=== PATIENT | female | born 1945 | race Two or more races ===

== ENCOUNTER 2023-11-14 08:03 | Emergency (ER) | payer OTHER ==
[~2023-11-14] VITALS: Ht 152.4 cm; Wt 83.0 kg
[~2023-11-14 08:03] MED LIST: ASA81 MG; IRBESARTAN300 MG; KETO10TA2 PO; METFORMIN HCL850 MG; METOPROLOL SUC100 MG; PROTONIX40 MG PO
[2023-11-14] MEDS ORDERED: VITAMIN D3250 MCG PO (08:24)
[2023-11-14] MEDS ORDERED: VITAMIN B-12 51 EACH SL (08:24)
[2023-11-14] MEDS ORDERED: PRAVASTATIN SOD10 MG PO (08:25)
[2023-11-14] MEDS ORDERED: BENZONATATE 100 MG CAPSULE PO ONE (09:15)
[2023-11-14] MEDS ORDERED: LEVALBUTEROL HCL 0.63 MG/3 ML SOLUTION IH ONE (09:15)
[2023-11-14 10:34] LABS: HEMATOCRIT 39.8 % (36.0-45.00); HEMOGLOBIN 13.2 g/dL (12.0-15.00); MEAN CELL VOLUME 87.2 fL (80.00-100.00); MEAN CORPUSCULAR HEMOGLOBIN 28.9 pg (27.00-32.0); MEAN CORPUSCULAR HGB CONC 33.1 g/dl (32.0-36.0); PLATELET COUNT 238 K/uL (150-450); RED BLOOD COUNT 4.57 M/uL (4.00-6.00); RED CELL DISTRIBUTION WIDTH 14.8 % (11.5-14.5)
== END 2023-11-14 12:57 | disposition home or self-care (01) ==
LOC: ER 08:04
PROVIDERS: General Practice
DX: U07.1 COVID-19 (principal); E11.9 Type 2 diabetes mellitus without complications; Z79.84 Long term (current) use of oral hypoglycemic drugs; I10 Essential (primary) hypertension